=== PATIENT | male | born 1970 | race African-American/Black ===

== ENCOUNTER 2016-10-24 11:49 | Emergency (ER) | payer MEDICARE, MEDICAID ==
[~2016-10-24 11:49] MED LIST: AMLO10TA2 PO; B12/1TAB3 PO; CYCL10TA2 PO; DULO60CA44 PO; GABA300C8 PO; LORA10TA3 PO; LOSA50TA6 PO; METO100T11 PO; NAPR500T3 PO; OXYC1TAB7 PO; RANI150T2 PO; SIMV20TA3 PO; TRAZ100T12 PO
[2016-10-24 12:32] VITALS: BP 136/78
[2016-10-24] MEDS ORDERED: AMOXICILLIN/K CLAV 875/125MG TABLET. PO ONE (13:30)
[2016-10-24] MEDS ORDERED: AMOX1TAB61 PO (13:34)
--- NOTE | 2016-10-24 13:34 | PHYS DOC ---
Past Medical History Past Medical History: Hypertension Additional Past Medical Histor: W Past Surgical History: Other Additional Past Surgical Histo: left leg [facility] Alcohol Use: Occasionally Drug Use: None Adult General Chief Complaint Chief Complaint: ABSCESS HPI HPI Patient is a 46 year old male who presents with complaint of possible boil on the right side of the face. Patient states that he has had the swelling for the past 2 months. Patient states that it is in front of his ear. Patient came to the emergency department as he believes that it is an abscess and he is asking for to be drained. Patient has not had any redness or swelling to the affected area. Patient denies any fevers. Patient states that the swelling is tender to touch. Patient has not taken any medications to help with his symptoms. Patient denies any history of similar symptoms. Review of Systems Review of Systems Constitutional: Denies fever or chills [] Eyes: Denies change in visual acuity, redness, or eye pain [] HENT: Facial swelling, Denies nasal congestion or sore throat [] Respiratory: Denies cough or shortness of breath [] Cardiovascular: Denies chest pain or edema [] GI: Denies abdominal pain, nausea, vomiting, bloody stools or diarrhea [] : Denies dysuria or hematuria [] Musculoskeletal: Denies back pain or joint pain [] Integument: Denies rash or skin lesions [] Neurologic: Denies headache, focal weakness or sensory changes [] Endocrine: Denies polyuria or polydipsia [] Current Medications Current Medications Current Medications Medications (Trade) Dose Ordered Sig/Yolie Start Time Stop Time Status Last Admin Dose Admin Amoxicillin/ Clavulanate Potassium (Augmentin 875/ 125mg) 1 tab 1X ONCE 10/24/16 13:30 10/24/16 13:47 DC 10/24/16 13:50 1 TAB Allergies Allergies Allergies Coded Allergies Type Severity Reaction Last Updated Verified meperidine Adverse Reaction Intermediate NAUSEA/Vomiting 02/03/16 Yes Physical Exam Physical Exam Constitutional: Alert, afebrile, no acute distress. [] HENT: Normocephalic, atraumatic, to have centimeter nodular swelling inferior to the right year, mildly tender to palpation, no fluctuance, mobile, oropharynx moist, no oral exudates, nose normal. [] Eyes: PERRLA, EOMI, conjunctiva normal, no discharge. [] Neck: Normal range of motion, no tenderness, supple, no stridor. [] Cardiovascular:Heart rate regular rhythm, no murmur [] Lungs & Thorax: Bilateral breath sounds clear to auscultation [] Abdomen: Bowel sounds normal, soft, no tenderness, no masses, no pulsatile masses. [] Skin: Warm, dry, no erythema, no rash. [] Back: No tenderness, no CVA tenderness. [] Extremities: No tenderness, no cyanosis, no clubbing, ROM intact, no edema. [] Neurologic: Alert and oriented X 3, normal motor function, normal sensory function, no focal deficits noted. [] Current Patient Data Vital Signs Vital Signs Date Time Temp Pulse Resp B/P Pulse Ox O2 Delivery O2 Flow Rate FiO2 10/24/16 12:32 97.6 87 16 96 Room Air 97.6 EKG EKG Not performed [] Interpretation Time: Bedside ultrasound performed and interpreted by myself: Solid subcutaneous nodule with no evidence of fluid, consistent with enlarged lymph node Radiology/Procedures Radiology/Procedures [] Course & Med Decision Making Course & Med Decision Making Pertinent Labs and Imaging studies reviewed. (See chart for details) The swelling on the patient's face appears to be an enlarged lymph node. This could represent a chronic adenitis though I did explain to the patient that malignancy could be a possibility. At this time we will start the patient on Augmentin therapy for the next week and recommended follow-up with his primary doctor. If the swelling does not improve, I explained to the patient that he would likely need to be referred to either an ENT or plastic surgeon for evaluation and possible biopsy of the lymph node. Advised patient to return to emergency department for any worsening symptoms. Patient voiced understanding and in agreement with treatment plan. Dragon Disclaimer Dragon Disclaimer This electronic medical record was generated, in whole or in part, using a voice recognition dictation system. Departure Departure Impression: Primary Impression: Preauricular lymphadenitis Disposition: 01 HOME, SELF-CARE Condition: STABLE Referrals: NO PCP (PCP) Additional Instructions: Your exam today reveals an enlarged tender lymph node in front of your right ear. While this could possibly be a sign of infection of your lymph node known as adenitis, this will need close follow-up in the next week. You will be treated with antibiotics to see if this will help resolve your adenitis. If this does not help, your primary doctor will need to refer you to either an ENT or plastic surgeon for evaluation and possible biopsy of this lymph node. Return to the emergency department for any worsening symptoms. Scripts Amoxicillin/Potassium Clav (Augmentin 875-125 Tablet)1 Each Tablet1 Tab PO BID # 14 TAB Prov:MARKY SUTTON MD 10/24/16 MARKY SUTTON MD Oct 24, 2016 13:34
== END 2016-10-24 13:50 | disposition home or self-care (01) ==
LOC: ER 11:49
DX: I88.8 Other nonspecific lymphadenitis (principal); I10 Essential (primary) hypertension; Z88.8 Allergy status to other drugs, medicaments and biological substances
CPT/HCPCS: 99284

== ENCOUNTER 2016-12-13 11:09 | Emergency (ER) | payer MEDICARE, MEDICAID ==
[~2016-12-13] VITALS: Ht 172.7 cm; Wt 99.3 kg
[~2016-12-13 11:09] MED LIST changes: +AMOX1TAB61 PO
[2016-12-13 13:23] VITALS: BP 142/81
--- NOTE | 2016-12-13 13:47 | RAD ---
PQRS Compliance Statement: One or more of the following individualized dose reduction techniques were utilized for this examination: 1. Automated exposure control 2. Adjustment of the mA and/or kV according to patient size 3. Use of iterative reconstruction technique CT of the head without contrast, 12/13/2016: History: Fall, head injury Comparison is made to a study from 01/31/2016. There is mild cerebral atrophy. The ventricles are within normal limits in size. There is no shift of the midline structures. There is no evidence of acute intracranial hemorrhage or mass effect. IMPRESSION: No acute intracranial abnormality is detected. CT of the cervical spine without contrast, 12/13/2016: Noncontrast scans were obtained with multiplanar reconstructions produced. The vertebral heights are well-maintained. No fracture or dislocation is identified. No significant spinal stenosis is evident. IMPRESSION: No acute cervical spine abnormality is detected.
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
== END 2016-12-13 14:38 | disposition home or self-care (01) ==
LOC: ER 11:09
DX: S09.90XA Unspecified injury of head, initial encounter (principal); S00.81XA Abrasion of other part of head, initial encounter; I10 Essential (primary) hypertension; Z88.5 Allergy status to narcotic agent; W01.0XXA Fall on same level from slipping, tripping and stumbling without subsequent striking against object, initial encounter; Y93.89 Activity, other specified; Y92.89 Other specified places as the place of occurrence of the external cause; Y99.8 Other external cause status
CPT/HCPCS: 70450; 72125; 82947; 99284-25

== ENCOUNTER 2019-01-03 04:33 | Emergency (ER) | payer MEDICARE, MEDICAID ==
[~2019-01-03] VITALS: Ht 174 cm; Wt 93.4 kg
[~2019-01-03 04:33] MED LIST changes: -AMLO10TA2 PO; +AMLO10TA8 PO; +GABA300C18 PO; -GABA300C8 PO; +LOSA-73 PO; -LOSA50TA6 PO; +METO-247 PO; -METO100T11 PO; +NAPR-514 PO; -NAPR500T3 PO; +TRAZ-86 PO; -TRAZ100T12 PO
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
[2019-01-03 05:12] LABS: BASO % 1 % (0-3); EOS % 1 % (0-3); HEMATOCRIT 43.7 % (39.0-53.0); HEMOGLOBIN 14.9 g/dL (13.0-17.5); LYMPH # 2.9 x10^3/uL (1.0-4.8); LYMPH % 48 % (24-48); MEAN CORPUSCULAR HEMOGLOBIN 33 pg (25-35); MEAN CORPUSCULAR HGB CONC 34 g/dL (31-37); MEAN CORPUSCULAR VOLUME 95 fL (79-100); MONO # 0.5 x10^3/uL (0.0-1.1); MONO % 8 % (0-9); NEUT # 2.6 x10^3uL (1.8-7.7); NEUT % 43 % (31-73); PLATELET COUNT 121 x10^3/uL (140-400); RED BLOOD COUNT 4.59 x10^6/uL (4.30-5.70); RED CELL DISTRIBUTION WIDTH 13.5 % (11.5-14.5)
[2019-01-03] MEDS ORDERED: ONDANSETRON PF 4 MG/2 ML VIAL. IV ONE (05:15)
[2019-01-03] MEDS ORDERED: KETOROLAC 30 MG/ML VIAL. IV ONE (05:15)
[2019-01-03] MEDS ORDERED: IV NORMAL SALINE 1000ML BAG 1,000 ML IV SCH (05:15)
[2019-01-03 05:28] LABS: CALCIUM 8.2 mg/dL (8.5-10.1); CREATININE 0.8 mg/dL (0.7-1.3); GFR 124.3; POTASSIUM 3.7 mmol/L (3.5-5.1)
[2019-01-03 05:34] LABS: ALBUMIN 3.6 g/dL (3.4-5.0); ALBUMIN/GLOBULIN RATIO 0.6 (1.0-1.7); TOTAL BILIRUBIN 1.4 mg/dL (0.2-1.0); TOTAL PROTEIN 9.4 g/dL (6.4-8.2)
[2019-01-03 06:18] LABS: BARBITURATES NEG (NEG); BENZODIAZEPINES POS (NEG); CANNABINOIDS NEG (NEG); COCAINE NEG (NEG); METHADONE NEG (NEG); OPIATES NEG (NEG); PHENCYCLIDINE NEG (NEG)
[2019-01-03 06:20] LABS: AMPHETAMINE/METHAMPHETAMINE NEG (NEG)
[2019-01-03] MEDS ORDERED: CONTRAST GIVEN. MC PRN (06:30)
[2019-01-03 06:56] LABS: BILIRUBIN,URINE MODERATE (NEG); CLARITY,URINE CLEAR; NITRITE,URINE NEGATIVE (NEG); PH,URINE 5.5; PROTEIN,URINE 100 mg/dL (NEG-TRACE)
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
[2019-01-03 06:58] LABS: COLOR,URINE AMBER
[2019-01-03 06:59] LABS: HYALINE CASTS, URINE MODERATE /HPF; SQUAMOUS EPITHELIAL CELL,UR MOD /LPF
[2019-01-03 07:00] LABS: BACTERIA,URINE FEW /HPF (0-FEW)
[2019-01-03] MEDS ORDERED: IOHEXOL 300 MG/ML 100ML VIAL. IV ONE (07:00)
[2019-01-03] MEDS ORDERED: OMEP20CA10 PO (07:46)
[2019-01-03 08:00] VITALS: BP 126/85
== END 2019-01-03 08:18 | disposition home or self-care (01) ==
LOC: ER 04:33
DX: F10.229 Alcohol dependence with intoxication, unspecified (principal); Y90.8 Blood alcohol level of 240 mg/100 ml or more; R74.8 Abnormal levels of other serum enzymes; R10.30 Lower abdominal pain, unspecified; I10 Essential (primary) hypertension; Z90.49 Acquired absence of other specified parts of digestive tract; Z88.8 Allergy status to other drugs, medicaments and biological substances
CPT/HCPCS: 36415; 74177; 80053; 80307; 81001; 83690; 85025; 87086; 96374; 96375; 99284; G0480; J1885; J2405; J7030; Q9967

== ENCOUNTER → 2019-01-28 | Outpatient (CLI) | payer MEDICARE, MEDICAID ==
[2019-01-03 08:00] VITALS: BP 126/85
[~2019-01-28] MED LIST changes: +GADOBUTROL 10 MMOL/10 ML VIAL IV ONE; +OMEP20CA10 PO
--- NOTE | 2019-01-28 16:10 | RAD ---
MRI abdomen with and without contrast January 28, 2019 INDICATION: Abnormal CT. Possible liver lesion in segment III. COMPARISON: CT abdomen/pelvis January 03, 2019, MRCP February 02, 2016. TECHNIQUE: Multiplanar, multisequence MR imaging of the abdomen was performed before and after the administration of gadolinium-based contrast. 9 mL Gadavist was administered intravenously. FINDINGS: Lung bases are clear. Heart size within normal limits. There is nodular contour of the hepatic parenchyma suggestive of underlying cirrhosis. There is subtle dropout of signal on out of phase images to suggest mild hepatic steatosis. There is heterogeneous enhancement of the hepatic parenchyma suggestive of congestive hepatopathy. In the region of previously seen hypoattenuating lesion in segment III, there is faint T2 signal alteration which measures approximately 1.4 cm. There is no definite arterial hyperenhancement or washout. There is delayed enhancement without definite capsule. No definite diffusion signal alteration is visualized. Oblique craniocaudal dimension of the spleen measures 13.3 cm which is borderline enlarged. Adrenal glands are normal in appearance. Pancreas is normal in appearance. No peripancreatic inflammatory changes are identified. Gallbladder surgically absent. There is no intrahepatic or extrahepatic biliary ductal dilatation. Common bile duct measures 7 mm which is within normal limits. No filling defects are identified. Pancreatic duct is within normal limits. Abdominal aorta is normal in caliber. No suspicious retroperitoneal lymphadenopathy is identified. There is no free fluid or free intraperitoneal air. Small large bowel are normal in caliber. No evidence of bowel obstruction or inflammation. Air or suspicious osseous abnormality. No free intraperitoneal air or free fluid. Subcentimeters cyst is identified in the posterior interpolar right kidney. No hydronephrosis or suspicious renal mass. Additional simple subcentimeter simple cysts are identified within the medial interpolar left kidney. IMPRESSION: 1. Previously seen 2.4 cm hypoattenuating lesion on the prior CT from January 03, 2019 is barely perceptible on the current MRI examination. There is subtle T2 signal alteration with isointense enhancement on arterial phase imaging without definite capsule or washout characteristics. Largest dimensions identified on the current examination measure 1.4 cm. Findings are suggestive of intermediate probability for hepatocellular carcinoma (LI-RADS 3). A three - six-month follow-up MRI may be of benefit. 2. Undulating contour of the hepatic parenchyma suggestive of cirrhosis. There is borderline splenomegaly which may reflect a degree of portal hypertension. 3. Mild hepatic steatosis. IMPRESSION: Electronically signed by: Meme Bennett MD (01/28/2019 4:07 PM) [id number]
== END | disposition home or self-care (01) ==
LOC: MRI 10:00
PROVIDERS: ATTEND Internal Medicine Gastroenterology
DX: K76.0 Fatty (change of) liver, not elsewhere classified (principal); R16.1 Splenomegaly, not elsewhere classified; N28.1 Cyst of kidney, acquired; K76.89 Other specified diseases of liver
CPT/HCPCS: 74183; A9585